=== PATIENT | female | born 1980 | race Caucasian/White ===

== ENCOUNTER 2025-08-08 06:04 | Inpatient (IN) | payer OTHER, MEDICAID ==
[~2025-08-08] VITALS: Ht 162.6 cm; Wt 68.9 kg
[2025-08-08 06:06] VITALS: O2SAT 98
[2025-08-08] MEDS: ONDANSETRON HCL 4MG/2ML INJ IV ONE (06:57)
[2025-08-08] MEDS: SODIUM CHLORIDE 0.9% 1,000 ML IV ONE (06:58)
[2025-08-08] MEDS: MORPHINE SULFATE 4 MG/ML INJ (FOR IV/IM USE) IV ONE (07:01)
[2025-08-08 07:31] LABS: BASOPHILS % 1.2 % (0.0-2.0); EOSINOPHILS % 2.3 % (0.0-5.0); HEMATOCRIT. 38.3 % (36.0-48.0); HEMOGLOBIN. 13.3 g/dL (12.0-16.0); LYMPHOCYTES % 35.0 % (20.0-50.0); MEAN PLATELET VOLUME 8.4 fl (7.4-10.4); MONOCYTES % 9.9 % (2.0-8.0); NEUTROPHILS % 51.6 % (40.0-76.0); PLATELET 304 x1000/uL (130-400); RED BLOOD CELL COUNT 4.04 mill/uL (4.2-5.4); RED CELL DISTRIBUTION WIDTH 12.8 % (11.6-14.6)
[2025-08-08 07:43] LABS: CREATININE 0.7 mg/dL (0.6-1.0); UREA NITROGEN BLOOD < 5 mg/dL (9-23)
[2025-08-08 07:45] LABS: ASPARTATE AMINOTRANSFERASE 20 IU/L (<34); BILIRUBIN DIRECT 0.1 mg/dL (<=3.0); BILIRUBIN TOTAL 0.4 mg/dL (0.1-1.0); PROTEIN TOTAL 7.0 g/dL (6.0-8.3)
[2025-08-08 07:50] LABS: HCG SCREEN NEGATIVE
[2025-08-08 10:40] VITALS: BP 130/78; PULSE 77; RESP 16; TEMP 36.5848
[2025-08-08] MEDS ORDERED: ACETAMINOPHEN 325MG TABLET PO PRN (10:45)
[2025-08-08] MEDS ORDERED: KETOROLAC 30MG/ML VIAL IV PRN (10:45)
[2025-08-08] MEDS ORDERED: ONDANSETRON HCL 4MG/2ML INJ IV PRN (10:45)
[2025-08-08 12:00] VITALS: BP 147/87; PULSE 78; RESP 18; TEMP 36.4; O2SAT 99
[2025-08-08 12:40] VITALS: BP 121/71; PULSE 98; RESP 18; TEMP 36.4
[2025-08-08] MEDS ORDERED: PROT40 MT (14:44)
[2025-08-08 16:00] VITALS: BP 106/58; PULSE 60; RESP 19; TEMP 36.6; O2SAT 96
[2025-08-08 17:44] VITALS: BP 106/58; PULSE 60; RESP 19; TEMP 97
[2025-08-09] MEDS ORDERED: PANTOPRAZOLE 40MG DR TABLET PO SCH (07:20)
== END 2025-08-08 18:30 | disposition home or self-care (01) | DRG 241 ==
LOC: ER 06:04 → 6EST 08:41 → EDBEDREQTM 08:42 → EDBEDREQ 08:42 → ENRESERV 09:09
PROVIDERS: ADMIT Internal Medicine; ATTEND Internal Medicine
DX: K29.70 Gastritis, unspecified, without bleeding (principal); G89.29 Other chronic pain; K21.9 Gastro-esophageal reflux disease without esophagitis; K27.9 Peptic ulcer, site unspecified, unspecified as acute or chronic, without hemorrhage or perforation; Z90.49 Acquired absence of other specified parts of digestive tract
CPT/HCPCS: 36415; 74176; 80048; 80076; 84703; 85025; 96361; 96374; 96375; 99285; A4606; J2270; J2405; J7030